=== PATIENT | female | born 1975 ===

== ENCOUNTER 2020-08-19 10:44 | Outpatient (REF) | payer OTHER, SELFPAY ==
--- NOTE | 2020-08-19 10:51 | XR_ITS ---
EXAMINATION: XR CHEST CLINICAL INFORMATION: Cough. COMPARISON: None TECHNIQUE: 2 views of the chest were obtained. FINDINGS: No significant abnormality is noted involving the heart, lungs, mediastinum, bony thorax or soft tissues. XR/XR chest 2V IMPRESSION: Unremarkable chest examination.
== END 2020-08-19 10:45 | disposition home or self-care (01) ==
LOC: HO.LAB 10:44
PROVIDERS: Visit Provider Nurse Practitioner Family
DX: R05 Cough (principal)
CPT/HCPCS: 0241U; 71046

== ENCOUNTER 2020-08-19 10:45 | Outpatient (REF) | payer OTHER, SELFPAY ==
[2020-08-19 15:16] LABS: Influenza A PCR NEGATIVE (Negative); Influenza B PCR NEGATIVE (Negative); Resp Syncy Virus RNA Qual PCR NEGATIVE (Negative); SARS COV2 PCR INHOUSE NEGATIVE (Negative)
== END 2020-08-19 10:46 | disposition home or self-care (01) ==
LOC: HO.HMGCX 10:45
PROVIDERS: PCP Internal Medicine; Visit Provider Nurse Practitioner Family
DX: Z20.828 Contact with and (suspected) exposure to other viral communicable diseases (principal)
CPT/HCPCS: 0241U

== ENCOUNTER 2022-05-11 15:26 | Outpatient (REF) | payer OTHER, SELFPAY ==
--- NOTE | ~2022-05-11 | XR_ITS ---
EXAMINATION: XR HAND, RIGHT CLINICAL INFORMATION: Joint pain COMPARISON: None TECHNIQUE: PA, lateral, and oblique views of the right hand. FINDINGS: No fracture or dislocation. Normal osseous mineralization. Joint spaces throughout the hand and wrist are maintained. No chondrocalcinosis or erosions. Minimal marginal osteophyte formation at the thumb IP joint. XR/XR hand RT min 3V IMPRESSION: 1. No acute osseous injury or radiographic evidence of erosive arthropathy. 2. Minimal thumb IP joint osteoarthritis.
== END 2022-05-11 15:27 | disposition home or self-care (01) ==
LOC: HO.HMGCX 15:26
PROVIDERS: PCP Internal Medicine; Visit Provider Internal Medicine
DX: M25.541 Pain in joints of right hand (principal)
CPT/HCPCS: 73130

== ENCOUNTER 2023-04-18 08:49 | Outpatient (AMB) | payer OTHER, SELFPAY ==
--- NOTE | 2023-04-18 08:53 | MHC.OFFWIV ---
Intake Vital Signs 04/18/23 08:57 BP 110/70 Blood Pressure Location Lt brachial Position Sitting Pulse 74 Pulse Source Pulse Oximeter Temp 98.2 F Temp Source Temporal Artery Scan Pulse Oximetry (%) 98 Oxygen Delivery Method Room Air Intake Visit Reasons: Ep, Left ear pain Intake Note: Patient here because she has been experiencing an itch in her left ear and has been scratching it and rcently she has discharge leaking out and now is having a hard time hearing out of the left ear. Patient Tobacco Use Status: Never used Tobacco Allergies acetaminophen [From PERCOCET] Allergy (Unknown, Unverified 04/18/23 08:56) ITCHING ibuprofen [IBUPROFEN] Allergy (Unknown, Unverified 04/18/23 08:56) HAS ONLY 1 KIDNEY oxycodone [From PERCOCET] Allergy (Unknown, Unverified 04/18/23 08:56) ITCHING Do you need a note to return to daycare/school/sports/work: Yes HPI Ep, Left ear pain HPI Details Patient reports a several week history of a left itchy year. Recently, she noticed some clear discharge from her ear, with ear pain. Denies any other upper respiratory symptoms. Denies any fever or chills. Denies any recent swimming. PFSH Family History Other Mental health disorder Social History Housing: House Patient Tobacco Use Status: Never used Tobacco Current occupational status: employed Cognitive needs: No Hearing needs: No Vision needs: Yes Review of Systems Const All systems reviewed & are unremarkable except as noted in HPI and below Physical Exam Vital Signs: Last Vital Signs Temp 98.2 F 04/18/23 08:57 Pulse 74 04/18/23 08:57 BP 110/70 04/18/23 08:57 Pulse Ox 98 04/18/23 08:57 Oxygen Delivery Method Room Air 04/18/23 08:57 Const General: cooperative, healthy appearing and no acute distress HEENT Head: Yes normal to inspection Ears: external ears normal, TM normal on the right and TM abnormal (Right TM ) wth effusion purulent on the left and erythematous on the left Neck Neck: Yes no lymphadenopathy Resp Effort & Inspection: normal respiratory effort and able to speak in complete sentences Auscultation: clear to auscultation bilaterally Cardio Jugular venous distension: no JVD Palpation: normal PMI Rate: regular rate Rhythm: regular rhythm Skin General skin exam: no rashes or lesions noted Extrem General: Yes capillary refill normal and Yes no clubbing, cyanosis or edema Psych Appearance: grossly normal Mental Status: mental status grossly normal Speech and movement: Normal speech and movement present Assessment & Plan Assessment & Plan (1) Left otitis media with effusion: Code(s): H65.92 - Unspecified nonsuppurative otitis media, left ear Plan: Augmentin for left OM with effusion. Reviewed indications, use, possible s/e of medication. She can use Tylenol/Motrin for any discomfort. Advised to return to the clinic if she does not improve with treatment, or if symptoms worsen or new symptoms develop. Patient agrees to plan. Medications: New amoxicillin-pot clavulanate 875-125 mg 1 tab PO BID 10 days 20 tabs 0RF H65.92 - Unspecified nonsuppurative otitis media, left ear Coding Level of Care Code Est Pt Level 3 (66336) Diagnoses Left otitis media with effusion H65.92
[2023-04-18 08:57] VITALS: BP 110/70; PULSE 74; TEMP 36.8; O2SAT 98
== END 2023-04-18 09:28 | disposition home or self-care (01) ==
PROVIDERS: PCP Internal Medicine; Visit Provider Nurse Practitioner Family
DX: H65.92 Unspecified nonsuppurative otitis media, left ear (principal)
CPT/HCPCS: 99213

== ENCOUNTER 2023-04-21 13:17 | Outpatient (AMB) | payer OTHER, SELFPAY ==
--- NOTE | 2023-04-21 13:20 | AM.OFFWIN_ITS ---
Intake Vital Signs 04/21/23 13:24 BP 120/74 Blood Pressure Location Rt brachial Position Sitting Pulse 94 Pulse Source Pulse Oximeter Temp 99.3 F Temp Source Temporal Artery Scan Pulse Oximetry (%) 97 Oxygen Delivery Method Room Air Intake Visit Reasons: EST/ear infection/swelling left side face Intake Note: Patient here for possible ear infection, she was here on tuesday with complaints of swelling on left side of face/neck and some discharge coming from left ear and was put on antibiotics. she is now here with the same issues but with increased swelling in face and jaw, unable to turn neck because it feels stiff, she has discharge coming from ear and has had low grade fevers. Patient Tobacco Use Status: Never used Tobacco Allergies acetaminophen [From PERCOCET] Allergy (Unknown, Unverified 04/18/23 08:56) ITCHING ibuprofen [IBUPROFEN] Allergy (Unknown, Unverified 04/18/23 08:56) HAS ONLY 1 KIDNEY oxycodone [From PERCOCET] Allergy (Unknown, Unverified 04/18/23 08:56) ITCHING HPI HPI Comments History of Present Illness Details 47-year-old female that presents for left ear pain. Patient states that she was running here over the weekend developed new pain she came seen Tuesday and told she has otitis externa. She is placed on Augmentin by previous provider. She presents today with worsening pain swelling of the left side of her face in ear tenderness behind the ear in new fever as well as nausea. [facility] Family History Other Mental health disorder Social History Housing: House Patient Tobacco Use Status: Never used Tobacco Current occupational status: employed Cognitive needs: No Hearing needs: No Vision needs: Yes Review of Systems Const All systems reviewed & are unremarkable except as noted in HPI and below Denies fever(s), Denies headache(s) and Denies weakness Eyes Reports no additional complaints ENT Details: Swelling of the ear, jaw pain Reports ear discharge, Reports otalgia and Denies headache(s) Card Reports no additional complaints, Denies chest pain, Denies leg edema and Denies dyspnea Resp Denies cough and Denies dyspnea GI Denies abdominal pain, Denies nausea and Denies vomiting Denies urinary frequency and Denies dysuria Musc Reports no additional complaints Neuro Denies headache(s) and Denies weakness Psych Reports no additional complaints Endo Reports no additional complaints Physical Exam Vital Signs: Last Vital Signs Temp 99.3 F 04/21/23 13:24 Pulse 94 04/21/23 13:24 BP 120/74 04/21/23 13:24 Pulse Ox 97 04/21/23 13:24 Oxygen Delivery Method Room Air 04/21/23 13:24 Const General: cooperative, no acute distress and alert Orientation/consciousness: patient oriented x3 Limitations: no limitations HEENT Other: Displaced auricle on the left side. Redness and swelling over the mastoid process tenderness to palpation along the mastoid process and down the neck. Purulent drainage in the ear canal was extensive swelling. Head: Yes normal to inspection General nose exam: Normal external nose present Eyes General: appearance normal, both eyes and all related structures Neck Neck: Yes normal visual inspection Chest Chest palpation & inspection: normal inspection of the chest Resp Effort & Inspection: normal respiratory effort, able to speak in complete sentences and no audible wheezes Auscultation: clear to auscultation bilaterally Cardio Rate: regular rate Rhythm: regular rhythm GI Inspection: Yes normal to inspection Palpation (GI): Soft to palpation and nontender Skin General skin exam: no rashes or lesions noted Neuro General: patient oriented x3 Psych Appearance: grossly normal Mental Status: mental status grossly normal Speech and movement: Normal speech and movement present Affect: normal affect Attitude: cooperative Thought process: Normal thought process present Thought content: Normal thought content present Assessment & Plan Assessment & Plan (1) Mastoiditis: Code(s): H70.90 - Unspecified mastoiditis, unspecified ear Plan 47-year-old female that presents for left ear pain. Vital signs stable on exam patient presents alert and oriented in [id number] discomfort. Exam was notable for displaced ear on the left side with swelling and erythema over the mastoid process tenderness to palpation over the mastoid process and down the neck. Purulent drainage in the ear canal with swelling. Unable to assess TM. Given patient presentation as well as systemic signs such as fever despite antibiotic therapy of concern is mastoiditis versus a malignant otitis externa. Discussed this with the patient and need for patient to be evaluated at the emergency department with ENT coverage. [facility] does not have ENT coverage after speaking with the triage provider. Called [facility] in they will expect the patient. Patient will go POV Discharge instructions, follow up and treatment are discussed with patient in my usual fashion. Alternatives in treatment are also discussed. The patient will return for worsening symptoms or as needed. Advised that any labs/imaging ordered will be followed up on and contact made if further treatment needed. Counseled that patient's condition may require further evaluation and/or treatment. Symptoms of concern for worsening disorder discussed in detail in my customary manner. Patient does verbalize understanding of the plan, there are no apparent barriers to communication. The patient is given the opportunity to ask questions and have them answered to his/her satisfaction Patient Instructions: You were seen and evaluated in the walk-in clinic today as we discussed there is concern that uric ear infection has spread to the bone behind her ear. To rule this out you need to go to the emergency room for further evaluation [facility] has been notified of your arrival. I Coding Level of Care Code Est Pt Level 4 (23741) Diagnoses Mastoiditis H70.90
[2023-04-21 13:24] VITALS: BP 120/74; PULSE 94; TEMP 37.4; O2SAT 97
== END 2023-04-21 14:00 | disposition home or self-care (01) ==
PROVIDERS: PCP Internal Medicine; Visit Provider Physician Assistant
DX: H70.90 Unspecified mastoiditis, unspecified ear (principal)
CPT/HCPCS: 99214

== ENCOUNTER 2023-04-27 08:44 | Outpatient (AMB) | payer OTHER, SELFPAY ==
--- NOTE | 2023-04-27 08:55 | MHC.OFFWIV ---
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 Patient was hospitalized 04/21-04/23/2023 at [facility] for complicated ear infection requiring IV antibiotics, they gave her a note stating she could return to work tomorrow however she states she is feeling much better and would like to return today. Denies fevers, chills, headache, vision changes, dizziness and weakness. Physical exam with slight purulence to left ear, no discomfort with external manipulation of bilateral ears, tympanic membrane erythematous on the left, normal on the right. No mastoid tenderness. Patient nontoxic appearing Likely improving left-sided otitis media no signs of necrotizing infection. No signs of mastoiditis. Patient well-appearing Patient can return to work afebrile here in the office. Educated patient on diagnosis and treatment plan, answered all question, patient verbalizes understanding. At this time patient will be discharged home, advised to return with new or worsening symptoms. Educated on worrisome signs and symptoms and when to return. At this time I feel comfortable discharge home. PFSH Family History Other Mental health disorder Social History Housing: House Patient Tobacco Use Status: Never used Tobacco Patient : No Current occupational status: employed Cognitive needs: No Hearing needs: No Vision needs: Yes Review of Systems Const Details: Constitutional : No Weight loss, No Fever, No Chills, No Fatigue, No Malaise ENT/Mouth : No sore throat, No Rhinorrhea, + ear discomfort Eyes: No Eye Pain, No Swelling, No Redness Cardiovascular : No Chest Pain, No SOB, No Dyspnea on Exertion, No Orthopnea, No Edema, No Palpitations Respiratory : No Cough, No Sputum, No Wheezing Gastrointestinal : No Nausea, No Vomiting, No Diarrhea, No Constipation, No abdominal Pain, No Hematochezia, No Melena Genitourinary : No Dysuria, No Urinary Frequency, No Hematuria, Musculoskeletal : No joint pain, No Myalgias, No Joint Swelling Skin : No Skin Lesions, No rash Neuro : No Weakness, No Numbness, No Dizziness, No Headache Psych : No Anxiety/Panic, No Depression All other systems reviewed and are negative All systems reviewed & are unremarkable except as noted in HPI and below Physical Exam Vital Signs: Last Vital Signs Temp 98.6 F 04/27/23 08:56 Pulse 100 04/27/23 08:56 Resp 20 04/27/23 08:56 BP 108/70 04/27/23 08:56 Pulse Ox 98 04/27/23 08:56 Oxygen Delivery Method Room Air 04/27/23 08:56 vss Appearance: Alert.? Oriented X3.? No acute distress.? Head: Normocephalic, atraumatic, no step-offs or deformities Eyes: Pupils equal, round and reactive to light.? ENT: Pharynx normal.? slight purulence to left ear, no discomfort with external manipulation of bilateral ears, tympanic membrane erythematous on the left, normal on the right. Neck: Normal inspection.? Neck supple.? CVS: Normal heart rate and rhythm.? Pulses normal.? Respiratory: No respiratory distress.? Breath sounds normal.? Abdomen: Soft and nontender.? Skin: Skin warm and dry.? Normal skin color.? Normal skin turgor.? Extremities: No lower extremity edema.? No calf ttp. 5/5 strength to bilateral upper and lower extremities Back: No midline tenderness, no C-spine tenderness, full range of motion, no CVA tenderness bilaterally Neuro: Oriented X 3.? No motor deficit.? No sensory deficit. CN 2-12 intact Assessment & Plan Assessment & Plan (1) Otitis media: Code(s): H66.90 - Otitis media, unspecified, unspecified ear Plan Take your medications as prescribed. If you were prescribed antibiotics today, it is important that you take your medication to their entirety, do not skip any doses, do not finish them early. Follow-up with your primary care provider this week. Return to the emergency department with new or worsening symptoms. Such as fevers, chills, chest pain, shortness of breath, nausea, vomiting, dizziness, headache, vision changes, lethargy In case of emergency call 911 Coding Level of Care Code Est Pt Level 3 (49301) Diagnoses Otitis media H66.90
[2023-04-27 08:56] VITALS: BP 108/70; PULSE 100; RESP 20; TEMP 37; O2SAT 98
== END 2023-04-27 09:22 | disposition home or self-care (01) ==
PROVIDERS: PCP Internal Medicine; Visit Provider Physician Assistant
DX: H66.90 Otitis media, unspecified, unspecified ear (principal)
CPT/HCPCS: 99213

== ENCOUNTER 2023-07-15 08:14 | Outpatient (AMB) | payer OTHER, SELFPAY ==
--- NOTE | 2023-07-15 08:41 | MHC.OFFWIV ---
Intake Vital Signs 07/15/23 08:42 Height 5 ft 7 in Weight 160 lb BMI 25.1 BP 112/72 Blood Pressure Location Rt brachial Position Sitting Pulse 94 Pulse Source Pulse Oximeter Pulse Oximetry (%) 98 Oxygen Delivery Method Room Air Intake Visit Reasons: EP Pain LT side rib Patient Tobacco Use Status: Never used Tobacco Allergies ibuprofen [IBUPROFEN] Allergy (Unknown, Verified 07/15/23 08:43) HAS ONLY 1 KIDNEY Medication List - Last Reconciled 07/15/23 by Mary Flores MD fluoxetine 60 mg PO DAILY lisdexamfetamine (Vyvanse) 60 mg PO DAILY trazodone 200 - 300 mg PO BEDTIME Do you need a note to return to daycare/school/sports/work: Yes HPI EP Pain LT side rib HPI Details Patient is a 47-year-old female came in today to be evaluated for left-sided lower chest pain Patient says that it started 2 or 3 weeks ago gradually and get got worse. Now it hurts to take a deep breath She is also complaining of epigastric discomfort and feeling of acid reflux. She is taking Tylenol which is not helping with the pain In between she is also taking NSAIDs. I am ordering left-sided rib x-ray, she is tender over 6, 7th rib with deep pressure Also having discomfort with epigastric palpation I have sent tramadol for the pain management Omeprazole to be taken daily. Further management after x-ray report [facility] Family History Other Mental health disorder Social History Housing: House Patient Tobacco Use Status: Never used Tobacco Current occupational status: employed Cognitive needs: No Hearing needs: No Vision needs: Yes Review of Systems Const Denies chills and Denies fever(s) ENT Denies epistaxis and Denies nasal discharge Resp Denies chest congestion, Denies cough and Denies hemoptysis GI Denies diarrhea and Denies nausea Skin/Breast Denies rash Neuro Reports no additional complaints Psych Reports no additional complaints Endo Reports no additional complaints Physical Exam Vital Signs: Last Vital Signs Pulse 94 07/15/23 08:42 BP 112/72 07/15/23 08:42 Pulse Ox 98 07/15/23 08:42 Oxygen Delivery Method Room Air 07/15/23 08:42 BMI result Body Mass Index 25.1 Const General: cooperative, comfortable and no acute distress Orientation/consciousness: patient oriented x3 HEENT Head: Yes normocephalic Eyes General: appearance normal, both eyes and all related structures Neck Other: Supple Neck: Yes supple Chest Chest/axillae images: 1. Tender to deep pressure over the rib Resp Effort & Inspection: normal respiratory effort, no cough and no stridor Cardio Rhythm: regular rhythm Heart sounds: S1 normal heart sound present and S2 normal heart sound present GI Other: Mild epigastric discomfort with pressure, bowel sound positive no guarding or rebound Skin General skin exam: turgor normal Neuro Other: Motor sensory intact General: patient oriented x3, tone normal and moves all extremities Extrem Other: No lower extremity swelling. Right lower extremity: no edema Left lower extremity: no edema Psych Other: Normal effect, speech clear Assessment & Plan Assessment & Plan (1) Non-cardiac chest pain: Code(s): R07.89 - Other chest pain (2) Epigastric discomfort: Code(s): R10.13 - Epigastric pain (3) Dyspepsia: Code(s): R10.13 - Epigastric pain Plan Patient is a 47-year-old female came in today to be evaluated for left-sided lower chest pain Patient says that it started 2 or 3 weeks ago gradually and get got worse. Now it hurts to take a deep breath She is also complaining of epigastric discomfort and feeling of acid reflux. She is taking Tylenol which is not helping with the pain In between she is also taking NSAIDs. I am ordering left-sided rib x-ray, she is tender over 6, 7th rib with deep pressure Also having discomfort with epigastric palpation I have sent tramadol for the pain management Omeprazole to be taken daily. Further management after x-ray report Medications: New tramadol 50 mg PO Q8H PRN 30 tabs 0RF pain 10 days omeprazole 20 mg PO DAILY 90 caps 0RF Coding Level of Care Code Est Pt Level 4 (59267) Diagnoses Non-cardiac chest pain R07.89 Epigastric discomfort R10.13 Dyspepsia R10.13
[2023-07-15 08:42] VITALS: BP 112/72; PULSE 94; O2SAT 98; BMI 25.1
== END 2023-07-15 09:05 | disposition home or self-care (01) ==
PROVIDERS: PCP Internal Medicine; Visit Provider Internal Medicine
DX: R07.89 Other chest pain (principal); R10.13 Epigastric pain
CPT/HCPCS: 99214

== ENCOUNTER 2023-07-15 08:54 | Outpatient (REF) | payer OTHER, SELFPAY ==
--- NOTE | ~2023-07-15 | XR_ITS ---
EXAMINATION: CHEST, XR RIBS, LEFT CLINICAL INFORMATION: Chest pain COMPARISON: None available. TECHNIQUE: PA chest. 3 views of the left ribs. FINDINGS: Lungs are clear. No consolidation, pneumothorax, or pleural effusion. The cardiomediastinal silhouette and pulmonary vasculature are normal. Osseous structures are unremarkable. Ribs are intact. No fractures are identified. XR/XR ribs LT min 3V w CXR1V IMPRESSION: Unremarkable examination.
== END 2023-07-15 08:55 | disposition home or self-care (01) ==
LOC: HO.HMGCX 08:54
PROVIDERS: PCP Internal Medicine; Visit Provider Internal Medicine
DX: R07.89 Other chest pain (principal)
CPT/HCPCS: 71101

== ENCOUNTER 2023-08-26 08:31 | Outpatient (AMB) | payer OTHER, SELFPAY ==
--- NOTE | 2023-08-26 08:35 | MHC.PC.OV ---
Vital Signs 08/26/23 08:37 Height 5 ft 7 in Weight 159 lb BMI 24.9 BP 110/70 Blood Pressure Location Lt brachial Position Sitting Pulse 69 Pulse Source Pulse Oximeter Pulse Oximetry (%) 98 Oxygen Delivery Method Room Air Intake Visit Reasons: Annual Exam Allergies ibuprofen [IBUPROFEN] Allergy (Unknown, Verified 08/26/23 08:35) HAS ONLY 1 KIDNEY Medication List - Last Reconciled 08/26/23 by Mary Flores MD fluoxetine 60 mg PO DAILY lisdexamfetamine (Vyvanse) 60 mg PO DAILY omeprazole 20 mg PO DAILY trazodone 200 - 300 mg PO BEDTIME Tobacco use date assessed: 08/26/23 Dental Screening Dental Screen Date: 08/26/23 Did you have a dental visit in the last 12 months?: No Was dental information given to patient?: Patient has dentist HPI Annual Exam HPI Details Patient came in today for physical examination She has [facility] Mammogram Pap smear through [facility] Patient is seeing psych med prescriber GERD: Patient is taking omeprazole but not regularly She is complaining of feeling chest pains which comes in randomly for few seconds and then resolve EKG done today shows normal sinus rhythm no acute findings I would recommend that she start taking omeprazole regularly it could be reflux related symptoms. Follow-up 1 year physical exam Labs to be done today PFSH Family History Other Mental health disorder Social History Housing: House Patient Tobacco Use Status: Never used Tobacco e-Cigarette/Vaping Use: Never Used Current occupational status: employed Cognitive needs: No Hearing needs: No Vision needs: Yes Questionnaire PHQ-9 Over the last 2 weeks, how often have you been bothered by any of the following problems? 1. Little interest or pleasure in doing things: not at all 2. Feeling down, depressed, or hopeless: not at all 3. Trouble falling or staying asleep, or sleeping too much: not at all 4. Feeling tired or having little energy: not at all 5. Poor appetite or overeating: not at all 6. Feeling bad about yourself - or that you are a failure or have let yourself or your family down: not at all 7. Trouble concentrating on things, such as reading the newspaper or watching television: not at all 8. Moving or speaking so slowly that other people could have noticed. Or the opposite - being so fidgety or restless that you have been moving around a lot more than usual: not at all 9. Thoughts that you would be better off or of hurting yourself in some way: not at all Total score: 0 Depression Screening Interpretation: Negative Depression Screening Done: Yes 02550 - PHQ-9 Billing: Yes Source: Developed by Drs. Nj Hazel, Yari Patel, Tomasz Lozano and colleagues, with an educational renetta from [employer]. Thrive Questionnaire Date Thrive assessed: 08/26/23 I am a: Patient What is your living situation today?: I have a steady place to live Within the past 12 months, did the food you bought not last and you didn't have the money to get more?: Never true Within the past 12 months, did you worry whether your food would run out before you got money to buy more?: Never true Do you have trouble paying for medicines?: No Do you have trouble getting transportation to medical appointments?: No Do you have trouble paying your heating and electricity bill?: No Do you have trouble taking care of your child, family member or friend?: No Do you have trouble with day-to-day activities such as bathing, preparing meals, shopping, managing finances, etc.?: No Are you currently unemployed and looking for a job?: No Are you interested in more education?: No Please select the resources that you would like help with: None Currently or been in a relationship where the following occur: no concerns reported AUDIT C Alcohol Use Questionnaire (AUDIT-C) 1. How often do you have a drink containing alcohol?: Monthly or less 2. How many drinks containing alcohol do you have on a typical day when you are drinking?: 1 or 2 3. How often do you have six or more drinks on one occasion?: Never Total Score: 1 LISET-7 AMB Questionnaire LISET-7 Date LISET - 7 assessed: 08/26/23 Feeling nervous, anxious, or on edge: 0 = Not at all Not being able to stop or control worryin = Not at all Worrying too much about different things: 0 = Not at all Trouble relaxin = Not at all Being so restless that it is hard to sit still: 0 = Not at all Becoming easily annoyed or irritable: 0 = Not at all Feeling afraid as if something awful might happen: 0 = Not at all Total LISET-7 score (0-4 normal; 5-9 mild; 10-14 moderate; 15-21 severe): 0 Source: Developed by Drs. Nj Hazel, Yari Patel, Tomasz Lozano and colleagues, with an educational renetta from [employer]. LISET-7 Assessment Billing LISET-7 Assessment Tool: LISET-7 Assessment 99004 Review of Systems Const Denies chills, Denies fever(s) and Denies headache(s) Eyes Denies blurry vision ENT Denies headache(s), Denies nasal discharge, Denies nasal obstruction, Denies odynophagia and Denies sinus pain Resp Denies cough and Denies hemoptysis GI Denies diarrhea, Denies odynophagia, Denies vomiting and Denies hematemesis Reports as per HPI Musc Denies abnormal gait Skin/Breast Reports as per HPI Neuro Denies Neuro-related abnormal movements, Denies Abnormal speech present, Denies abnormal gait, Denies headache(s) and Denies Sensory deficit (Neuro) Psych Denies mood swings and Denies paranoia Endo Reports as per HPI Nirmal/Lymph Reports as per HPI Aller/Immun Reports as per HPI Physical exam (Primary Care) Vital Signs: Last Vital Signs Pulse 69 08/26/23 08:37 BP 110/70 08/26/23 08:37 Pulse Ox 98 08/26/23 08:37 Oxygen Delivery Method Room Air 08/26/23 08:37 BMI result Body Mass Index 24.9 Tobacco/Smoking Status: Tobacco use Status Tobacco use date assessed 08/26/23 08/26/23 08:42 Patient Tobacco Use Status Never used Tobacco 08/26/23 08:42 e-Cigarette/Vaping Use Never Used 08/26/23 08:42 PHQ-9: PHQ-9 Score PHQ-9: Total score 0 08/26/23 09:09 Depression Screening Interpretation: Negative Thrive Assessment: Date of Thrive Assessment Date Thrive assessed 08/26/23 08/26/23 08:42 Currently or been in a relationship where the following occur: no concerns reported Const General: cooperative, comfortable and no acute distress Orientation/consciousness: patient oriented x3 HENMT Head: Yes normocephalic and Yes atraumatic Eyes General: appearance normal, both eyes and all related structures Pupils: Equal, round and reactive pupils present EOM: EOMs intact bilaterally Neck Neck: Yes supple and No lymphadenopathy Thyroid: Thyroid normal Lymphatic: no lymphadenopathy noted Resp Effort & Inspection: normal respiratory effort and able to speak in complete sentences Auscultation: clear to auscultation bilaterally Cardio Heart sounds: S1 normal heart sound present and S2 normal heart sound present GI Palpation (GI): Soft to palpation and nontender Auscultation: normal bowel sounds General: Yes no CVA tenderness Back/Spine/Pelvis Back: no CVA tenderness Skin General skin exam: elasticity normal and turgor normal Neuro General: patient oriented x3 and gait normal Cranial nerves: Yes Equal, round and reactive pupils present Speech: No Abnormal speech present Sensory Exam: No Sensory deficit (Neuro) Coordination: tandem gait normal and Romberg test negative Extrem General: Yes normal exam except as noted and No edema Office Procedures EKG [id number], Complete Assessment and Plan Assessment & Plan (1) Encounter for general adult medical examination with abnormal findings: Code(s): Z00.01 - Encounter for general adult medical examination with abnormal findings (2) Chest pain: Code(s): R07.9 - Chest pain, unspecified Qualifiers: Chest pain type: precordial pain Qualified Code(s): R07.2 - Precordial pain (3) Dyspepsia: Code(s): R10.13 - Epigastric pain Plan Patient came in today for physical examination She has OBGYN Mammogram Pap smear through [facility] Patient is seeing psych med prescriber GERD: Patient is taking omeprazole but not regularly She is complaining of feeling chest pains which comes in randomly for few seconds and then resolve EKG done today shows normal sinus rhythm no acute findings I would recommend that she start taking omeprazole regularly it could be reflux related symptoms. Follow-up 1 year physical exam Labs to be done today Orders: Orders Complete Blood Count Auto Diff Today R07.9 - Chest pain, unspecified, R10.13 - Epigastric pain, Z00.01 - Encounter for general adult medical examination with abnormal findings Comprehensive [place]. Panel Fast Today R07.9 - Chest pain, unspecified, R10.13 - Epigastric pain, Z00.01 - Encounter for general adult medical examination with abnormal findings Lipid Panel Today R07.9 - Chest pain, unspecified, R10.13 - Epigastric pain, Z00.01 - Encounter for general adult medical examination with abnormal findings AMB EKG-In Office Today R07.9 - Chest pain, unspecified TSH reflex Free T4 Today R07.9 - Chest pain, unspecified, R10.13 - Epigastric pain, Z00.01 - Encounter for general adult medical examination with abnormal findings Coding Level of Care Code Est Pt Prev Care 40-64y(30858) Diagnoses Encounter for general adult medical examination with abnormal findings Z00.01 Precordial pain R07.2 Chest pain type: precordial pain Dyspepsia R10.13 CPT Codes EKG - CPT: 12002-[id number], Complete ([id number]) Additional Codes LISET-7 Assessment Billing - LISET-7 Assessment Tool: LISET-7 Assessment 04717 ([id number])
[2023-08-26 08:37] VITALS: BP 110/70; PULSE 69; O2SAT 98; BMI 24.9
== END 2023-08-26 11:21 | disposition home or self-care (01) ==
PROVIDERS: PCP Internal Medicine; Visit Provider Internal Medicine
DX: Z00.00 Encounter for general adult medical examination without abnormal findings (principal); R07.2 Precordial pain; R10.13 Epigastric pain
CPT/HCPCS: 93000; 99396

== ENCOUNTER 2023-08-26 09:09 | Outpatient (REF) | payer OTHER, SELFPAY ==
[2023-08-26 12:18] LABS: MANUAL DIFF FLAG NO
[2023-08-26 12:28] LABS: Basophils Absolute Auto 0.1 X10*3/uL (0.0-0.2); Basophils Percent Auto 0.7 % (0-2); Eosinophils Absolute Auto 0.2 X10*3/uL (0.0-0.4); Eosinophils Percent Auto 1.6 % (0-4); Hematocrit 38.9 % (37.0-47.0); Hemoglobin 12.9 g/dl (12.0-16.0); Imm Gran Abs Auto 0.05 X10*3/uL (0.00-0.03); Imm Gran Pct Auto 0.5 % (0.0-0.4); Lymphocytes Absolute Auto 2.7 X10*3/uL (1.2-4.9); Lymphocytes Percent Auto 26.1 % (20-40); Mean Corpuscular HGB Conc 33.2 g/dl (31.0-35.0); Mean Corpuscular Hemoglobin 28.7 pg (27.0-33.0); Mean Corpuscular Volume 86.4 fL (80.0-98.0); Mean Platelet Volume 9.7 fL (9.4-12.3); Monocytes Absolute Auto 0.7 X10*3/uL (0.1-1.2); Neutrophils Absolute Auto 6.7 x10*3/uL (2.0-8.3); Neutrophils Percent Auto 64.1 % (45-73); Platelet Count 338 X10*3/uL (160-400); Red Cell Distribution Width 13.1 % (11.0-16.0); White Blood Count 10.5 X10*3/uL (4.8-10.8)
[2023-08-26 13:16] LABS: Alanine Aminotransferase 11 U/L (0-31); Albumin Level 4.3 g/dL (3.5-5.0); Alkaline Phosphatase 52 U/L (39-117); Anion Gap 11 (12-20); Aspartate Amino Transferase 14 U/L (5-31); Bilirubin Total 0.6 mg/dL (0.0-1.0); Blood Urea Nitrogen 16 mg/dL (9-16); Calcium 8.9 mg/dL (8.4-10.2); Carbon Dioxide 24 mmol/L (22-29); Chloride 107 mmol/L (96-108); Cholesterol 179 mg/dL (<200); Estimated Glomerular Filt Rate > 60; Glucose Fasting 86 mg/dL (60-99); HDL Cholesterol 48 mg/dL (>40); LDL Cholesterol Calculated 118 mg/dL (<100); Sodium 138 mmol/L (135-145); Total Protein 7.7 g/dL (6.5-8.0); Triglycerides 66 mg/dL (<150)
[2023-08-26 13:49] LABS: TSH reflex Free T4 0.59 uIU/mL (0.32-4.0)
== END 2023-08-26 09:10 | disposition home or self-care (01) ==
LOC: HO.HMGCLDS 09:09
PROVIDERS: PCP Internal Medicine; Visit Provider Internal Medicine
DX: Z00.01 Encounter for general adult medical examination with abnormal findings (principal); R10.13 Epigastric pain; R07.9 Chest pain, unspecified
CPT/HCPCS: 36415; 80053; 80061; 84443; 85025

== ENCOUNTER 2024-01-04 13:02 | Outpatient (AMB) | payer OTHER, SELFPAY ==
--- NOTE | 2024-01-04 13:04 | A.OFFPC_ITS ---
Vital Signs 01/04/24 13:05 Height 5 ft 7 in Weight 167 lb BMI 26.2 BP 132/80 Blood Pressure Location Lt brachial Position Sitting Pulse 79 Pulse Source Pulse Oximeter Pulse Oximetry (%) 98 Oxygen Delivery Method Room Air Intake Visit Reasons: Back Pain Allergies ibuprofen [IBUPROFEN] Allergy (Unknown, Verified 08/26/23 08:35) HAS ONLY 1 KIDNEY Medication List - Last Reconciled 01/04/24 by Mary Flores MD fluoxetine 60 mg PO DAILY lisdexamfetamine (Vyvanse) 60 mg PO DAILY trazodone 200 - 300 mg PO BEDTIME Tobacco use date assessed: 01/04/24 Dental Screening Dental Screen Date: 01/04/24 Did you have a dental visit in the last 12 months?: No Was dental information given to patient?: Patient has dentist HPI Back Pain HPI Details Patient is a 48-year-old female came in today to be evaluated for back pain Patient says that she has been having this pain for the past few days She was trying to lose weight walking before it started Pain is located lower back both sides and radiating to both her hips When she wakes up in the morning it is difficult to get out of bed because of the pain Patient have sciatica history but this pain is different she tells me Laying down makes pain better moving around makes it worse There is no bowel or bladder issues She is also feeling itchy in her left ear, on examination patient have impacted cerumen for that I have sent Debrox ear drops She is to use it 4 days before her follow-up in a week For her back pain I have ordered prednisone 20 mg once a day and baclofen 10 mg b.i.d. for 10 days. Patient have single kidney and can not take nonsteroidal anti-inflammatory medications She is taking Tylenol which does help a little Follow-up 7 days PFSH Family History Other Mental health disorder Social History Housing: House Patient Tobacco Use Status: Never used Tobacco e-Cigarette/Vaping Use: Never Used Current occupational status: employed Cognitive needs: No Hearing needs: No Vision needs: Yes Questionnaire PHQ-9 Over the last 2 weeks, how often have you been bothered by any of the following problems? 1. Little interest or pleasure in doing things: not at all 2. Feeling down, depressed, or hopeless: not at all 3. Trouble falling or staying asleep, or sleeping too much: not at all 4. Feeling tired or having little energy: not at all 5. Poor appetite or overeating: not at all 6. Feeling bad about yourself - or that you are a failure or have let yourself or your family down: not at all 7. Trouble concentrating on things, such as reading the newspaper or watching television: not at all 8. Moving or speaking so slowly that other people could have noticed. Or the opposite - being so fidgety or restless that you have been moving around a lot more than usual: not at all 9. Thoughts that you would be better off or of hurting yourself in some way: not at all Total score: 0 Depression Screening Interpretation: Negative Depression Screening Done: Yes 67404 - PHQ-9 Billing: Yes Source: Developed by Drs. Nj Hazel, Yari Patel, Tomasz Lozano and colleagues, with an educational renetta from [employer]. Thrive Questionnaire Date Thrive assessed: 01/04/24 I am a: Patient What is your living situation today?: I have a steady place to live Within the past 12 months, did the food you bought not last and you didn't have the money to get more?: Never true Within the past 12 months, did you worry whether your food would run out before you got money to buy more?: Never true Do you have trouble paying for medicines?: No Do you have trouble getting transportation to medical appointments?: No Do you have trouble paying your heating and electricity bill?: No Do you have trouble taking care of your child, family member or friend?: No Do you have trouble with day-to-day activities such as bathing, preparing meals, shopping, managing finances, etc.?: No Are you currently unemployed and looking for a job?: No Are you interested in more education?: No THRIVE Score: 0 AUDIT C Alcohol Use Questionnaire (AUDIT-C) 1. How often do you have a drink containing alcohol?: Monthly or less 2. How many drinks containing alcohol do you have on a typical day when you are drinking?: 1 or 2 3. How often do you have six or more drinks on one occasion?: Never Total Score: 1 LISET-7 AMB Questionnaire LISET-7 Date LISET - 7 assessed: 01/04/24 Feeling nervous, anxious, or on edge: 0 = Not at all Not being able to stop or control worryin = Not at all Worrying too much about different things: 0 = Not at all Trouble relaxin = Not at all Being so restless that it is hard to sit still: 0 = Not at all Becoming easily annoyed or irritable: 0 = Not at all Feeling afraid as if something awful might happen: 0 = Not at all Total LISET-7 score (0-4 normal; 5-9 mild; 10-14 moderate; 15-21 severe): 0 Source: Developed by Drs. Nj Hazel, Yari Patel, Tomasz Lozano and colleagues, with an educational renetta from [employer]. Review of Systems Const Denies chills and Denies fever(s) GI Denies fecal incontinence Musc Denies atrophy, Denies loss of height and Denies muscle weakness Neuro Denies Neuro-related abnormal movements, Denies lack of coordination, Denies focal weakness and Denies Sensory deficit (Neuro) Physical exam (Primary Care) Vital Signs: Last Vital Signs Pulse 79 01/04/24 13:05 BP 132/80 01/04/24 13:05 Pulse Ox 98 01/04/24 13:05 Oxygen Delivery Method Room Air 01/04/24 13:05 BMI result Body Mass Index 26.2 Tobacco/Smoking Status: Tobacco use Status Tobacco use date assessed 01/04/24 01/04/24 13:08 Patient Tobacco Use Status Never used Tobacco 01/04/24 13:08 e-Cigarette/Vaping Use Never Used 01/04/24 13:08 PHQ-9: PHQ-9 Score PHQ-9: Total score 0 01/04/24 13:11 Depression Screening Interpretation: Negative Thrive Assessment: Date of Thrive Assessment Date Thrive assessed 01/04/24 01/04/24 13:11 Const General: cooperative Nutritional Appearance: well nourished Orientation/consciousness: patient oriented x3 Neck Neck: Yes supple Resp Effort & Inspection: normal respiratory effort, no cough and no tracheal deviation Cardio Heart sounds: S1 normal heart sound present and S2 normal heart sound present General: Yes no CVA tenderness Back/Spine/Pelvis Back: no CVA tenderness Cervical Spine: cervical ROM normal Thoracic/Lumbar Spine: thoracic and lumbar spine normal to inspection, No kyphosis, No pain with thoraco-lumbar ROM, paraspinal muscle tenderness, No thoracic spinal tenderness and No lumbar spinal tenderness Neuro General: patient oriented x3 Cognition (Neuro): normal cognition Gait exam (Neuro): Normal gait present Motor exam (neuro): 5/5 motor strength present throughout Sensory Exam: No Sensory deficit (Neuro) Assessment and Plan Assessment & Plan (1) Strain of lumbar paraspinal muscle: Code(s): S39.012A - Strain of muscle, fascia and tendon of lower back, initial encounter Qualifiers: Encounter type: initial encounter Qualified Code(s): S39.012A - Strain of muscle, fascia and tendon of lower back, initial encounter (2) Impacted cerumen, left ear: Code(s): H61.22 - Impacted cerumen, left ear Plan Patient is a 48-year-old female came in today to be evaluated for back pain Patient says that she has been having this pain for the past few days She was trying to lose weight walking before it started Pain is located lower back both sides and radiating to both her hips When she wakes up in the morning it is difficult to get out of bed because of the pain Patient have sciatica history but this pain is different she tells me Laying down makes pain better moving around makes it worse There is no bowel or bladder issues She is also feeling itchy in her left ear, on examination patient have impacted cerumen for that I have sent Debrox ear drops She is to use it 4 days before her follow-up in a week For her back pain I have ordered prednisone 20 mg once a day and baclofen 10 mg b.i.d. for 10 days. Patient have single kidney and can not take nonsteroidal anti-inflammatory medications She is taking Tylenol which does help a little Follow-up 7 days Medications: New prednisone 20 mg PO DAILY 7 tabs 0RF 7 days carbamide peroxide 6.5% (Debrox) 5 drps otic (ear) left DAILY 15 mL 0RF 4 days baclofen 10 mg PO BID PRN 20 tabs 0RF muscle spasm 10 days Coding Level of Care Code Est Pt Level 3 (15012) Diagnoses Strain of lumbar paraspinous muscle, initial encounter S39.012A Encounter type: initial encounter Impacted cerumen, left ear H61.22
[2024-01-04 13:05] VITALS: BP 132/80; PULSE 79; O2SAT 98; BMI 26.2
== END 2024-01-04 13:35 | disposition home or self-care (01) ==
PROVIDERS: PCP Internal Medicine; Visit Provider Internal Medicine
DX: S39.012A Strain of muscle, fascia and tendon of lower back, initial encounter (principal); H61.22 Impacted cerumen, left ear
CPT/HCPCS: 99213

== ENCOUNTER 2024-01-13 14:21 | Outpatient (AMB) | payer OTHER, SELFPAY ==
[2024-01-13 14:26] VITALS: BP 118/82; PULSE 76; O2SAT 100; BMI 25.7
--- NOTE | 2024-01-13 14:26 | MHC.PC.OV ---
Vital Signs 01/13/24 14:26 Height 5 ft 7 in Weight 164 lb BMI 25.7 BP 118/82 Blood Pressure Location Rt brachial Position Sitting Pulse 76 Pulse Source Pulse Oximeter Pulse Oximetry (%) 100 Oxygen Delivery Method Room Air Intake Visit Reasons: F/U OK per [place] Allergies ibuprofen [IBUPROFEN] Allergy (Unknown, Verified 01/13/24 14:27) HAS ONLY 1 KIDNEY Medication List - Last Reconciled 01/13/24 by Mary Flores MD baclofen 10 mg PO Q8H PRN 15 days carbamide peroxide 6.5% (Debrox) 5 drps otic (ear) left DAILY 4 days fluoxetine 60 mg PO DAILY lisdexamfetamine (Vyvanse) 60 mg PO DAILY trazodone 200 - 300 mg PO BEDTIME Tobacco use date assessed: 01/13/24 Dental Screening Dental Screen Date: 01/13/24 Did you have a dental visit in the last 12 months?: Yes Did you have a dental problem in the last 6 months where you did not have access to dental care?: No Was dental information given to patient?: Patient has dentist HPI F/U OK per [place] HPI Details Patient is a 48-year-old female came in today for re-evaluation of back pain and also have cerumen irrigated from left ear Patient is feeling much better after finishing prednisone Baclofen did help her she is taking 2 times a day she is requesting if we can increase the dose to 3 times I have sent 30 more tablets she may take it 3 times a day for another couple of weeks Ear was irrigated with good result She is due for physical exam, we will book that in 3 or 4 months PFSH Family History Other Mental health disorder Social History Housing: House Patient Tobacco Use Status: Never used Tobacco e-Cigarette/Vaping Use: Never Used Current occupational status: employed Cognitive needs: No Hearing needs: No Vision needs: Yes Questionnaire Thrive Questionnaire Date Thrive assessed: 01/04/24 AUDIT C Alcohol Use Questionnaire (AUDIT-C) 1. How often do you have a drink containing alcohol?: Never 3. How often do you have six or more drinks on one occasion?: Never Total Score: 0 Score Reviewed/Action Taken: Yes LISET-7 AMB Questionnaire LISET-7 Date LISET - 7 assessed: 01/04/24 Source: Developed by Drs. Nj Hazel, Yari Patel, Tomasz Lozano and colleagues, with an educational renetta from [employer]. Review of Systems Const Denies chills and Denies fever(s) ENT Denies epistaxis and Denies nasal discharge Card Denies chest pain Resp Denies chest congestion, Denies cough and Denies hemoptysis GI Denies diarrhea and Denies nausea Skin/Breast Denies rash Neuro Reports no additional complaints Psych Reports no additional complaints Endo Reports no additional complaints Physical exam (Primary Care) Vital Signs: Last Vital Signs Pulse 76 01/13/24 14:26 BP 118/82 01/13/24 14: Pulse Ox 100 01/13/24 14:26 Oxygen Delivery Method Room Air 01/13/24 14:26 BMI result Body Mass Index 25.7 Tobacco/Smoking Status: Tobacco use Status Tobacco use date assessed 01/13/24 01/13/24 14:30 Patient Tobacco Use Status Never used Tobacco 01/13/24 14:30 e-Cigarette/Vaping Use Never Used 01/13/24 14:30 Thrive Assessment: Date of Thrive Assessment Date Thrive assessed 01/04/24 01/13/24 14:30 Const General: cooperative, comfortable and no acute distress Orientation/consciousness: patient oriented x3 HENMT Other: Both ears clean after irrigation of left ear Head: Yes normocephalic Eyes General: appearance normal, both eyes and all related structures Neck Neck: Yes supple Resp Effort & Inspection: normal respiratory effort, no cough and no stridor Cardio Rhythm: regular rhythm Heart sounds: S1 normal heart sound present and S2 normal heart sound present Skin General skin exam: turgor normal Neuro General: patient oriented x3, tone normal and moves all extremities Extrem Right lower extremity: no edema Left lower extremity: no edema Office Procedures Cerumen Removal From which ear canal was the cerumen removed: left Removal: irrigation Notes: patient tolerated procedure well, no complications and ear canal clear [id number] Irrigation/Lavage Assessment and Plan Assessment & Plan (1) Strain of lumbar paraspinal muscle: Code(s): S39.012A - Strain of muscle, fascia and tendon of lower back, initial encounter Qualifiers: Encounter type: initial encounter Qualified Code(s): S39.012A - Strain of muscle, fascia and tendon of lower back, initial encounter (2) Impacted cerumen, left ear: Code(s): H61.22 - Impacted cerumen, left ear Plan Patient is a 48-year-old female came in today for re-evaluation of back pain and also have cerumen irrigated from left ear Patient is feeling much better after finishing prednisone Baclofen did help her she is taking 2 times a day she is requesting if we can increase the dose to 3 times I have sent 30 more tablets she may take it 3 times a day for another couple of weeks Ear was irrigated with good result She is due for physical exam, we will book that in 3 or 4 months Medications: Changed From baclofen 10 mg PO BID 10 days PRN 20 tabs 0RF muscle spasm To baclofen 10 mg PO Q8H PRN 30 tabs 0RF muscle spasm 15 days Coding Level of Care Code Est Pt Level 3 (43617) Diagnoses Strain of lumbar paraspinous muscle, initial encounter S39.012A Encounter type: initial encounter Impacted cerumen, left ear H61.22 CPT Codes Office Procedure - CPT: 68640-Woq Irrigation/Lavage ([id number])
== END 2024-01-13 15:05 | disposition home or self-care (01) ==
PROVIDERS: PCP Internal Medicine; Visit Provider Internal Medicine
DX: S39.012A Strain of muscle, fascia and tendon of lower back, initial encounter (principal); H61.22 Impacted cerumen, left ear
CPT/HCPCS: 69209; 99213

== ENCOUNTER 2024-02-21 14:06 | Outpatient (AMB) | payer OTHER, SELFPAY ==
[2024-02-21 14:07] VITALS: BP 126/82; PULSE 82; O2SAT 97; BMI 26.2
--- NOTE | 2024-02-21 14:07 | MHC.PC.OV ---
Vital Signs 02/21/24 14:07 Height 5 ft 7 in Weight 167 lb 4 oz BMI 26.2 BP 126/82 Blood Pressure Location Rt brachial Position Sitting Pulse 82 Pulse Source Pulse Oximeter Pulse Oximetry (%) 97 Oxygen Delivery Method Room Air Intake Visit Reasons: PE Allergies ibuprofen [IBUPROFEN] Allergy (Unknown, Verified 02/21/24 14:08) HAS ONLY 1 KIDNEY Tobacco use date assessed: 02/21/24 Dental Screening Dental Screen Date: 01/13/24 HPI PE HPI Details Patient is a 48-year-old female came in today to talk about her ears Patient says that she has this problem of itching inside the ear for years She had cerumen impaction left ear that we cleaned last visit But patient continued to the itching On examination her ears are within normal limit I have placed a referral for her to see chemistry research assistant Her back pain is better, now she is taking baclofen only as needed That is the only medication from primary care office PFSH Family History Other Mental health disorder Social History Housing: House Patient Tobacco Use Status: Never used Tobacco e-Cigarette/Vaping Use: Never Used service: No Current occupational status: employed Cognitive needs: No Hearing needs: No Vision needs: Yes Questionnaire PHQ-9 Over the last 2 weeks, how often have you been bothered by any of the following problems? 1. Little interest or pleasure in doing things: not at all 2. Feeling down, depressed, or hopeless: not at all 3. Trouble falling or staying asleep, or sleeping too much: not at all 4. Feeling tired or having little energy: not at all 5. Poor appetite or overeating: not at all 6. Feeling bad about yourself - or that you are a failure or have let yourself or your family down: not at all 7. Trouble concentrating on things, such as reading the newspaper or watching television: not at all 8. Moving or speaking so slowly that other people could have noticed. Or the opposite - being so fidgety or restless that you have been moving around a lot more than usual: not at all 9. Thoughts that you would be better off or of hurting yourself in some way: not at all Total score: 0 Depression Screening Interpretation: Negative Depression Screening Done: Yes 92116 - PHQ-9 Billing: Yes Source: Developed by Drs. Nj Hazel, Yari Patel, Tomasz Lozano and colleagues, with an educational renetta from [employer]. Thrive Questionnaire Date Thrive assessed: 02/21/24 I am a: Patient What is your living situation today?: I have a steady place to live Within the past 12 months, did the food you bought not last and you didn't have the money to get more?: Never true Within the past 12 months, did you worry whether your food would run out before you got money to buy more?: Never true Do you have trouble paying for medicines?: No Do you have trouble getting transportation to medical appointments?: No Do you have trouble paying your heating and electricity bill?: No Do you have trouble taking care of your child, family member or friend?: No Do you have trouble with day-to-day activities such as bathing, preparing meals, shopping, managing finances, etc.?: No Are you currently unemployed and looking for a job?: No Are you interested in more education?: No Please select the resources that you would like help with: None Currently or been in a relationship where the following occur: no concerns reported THRIVE Score: 0 AUDIT C Alcohol Use Questionnaire (AUDIT-C) 1. How often do you have a drink containing alcohol?: Never 3. How often do you have six or more drinks on one occasion?: Never Total Score: 0 Score Reviewed/Action Taken: Yes LISET-7 AMB Questionnaire LISET-7 Date LISET - 7 assessed: 02/21/24 Feeling nervous, anxious, or on edge: 0 = Not at all Not being able to stop or control worryin = Not at all Worrying too much about different things: 0 = Not at all Trouble relaxin = Not at all Being so restless that it is hard to sit still: 0 = Not at all Becoming easily annoyed or irritable: 0 = Not at all Feeling afraid as if something awful might happen: 0 = Not at all Total LISET-7 score (0-4 normal; 5-9 mild; 10-14 moderate; 15-21 severe): 0 Source: Developed by Drs. Nj Hazel, Yari Patel, Tomasz Lozano and colleagues, with an educational renetta from [employer]. LISET-7 Assessment Billing LISET-7 Assessment Tool: LISET-7 Assessment 86527 Review of Systems Const Denies chills and Denies fever(s) ENT Denies epistaxis and Denies nasal discharge Card Denies chest pain Resp Denies chest congestion, Denies cough and Denies hemoptysis GI Denies diarrhea and Denies nausea Skin/Breast Denies rash Neuro Reports no additional complaints Psych Reports no additional complaints Endo Reports no additional complaints Physical exam (Primary Care) Vital Signs: Last Vital Signs Pulse 82 02/21/24 14:07 BP 126/82 02/21/24 14:07 Pulse Ox 97 02/21/24 14:07 Oxygen Delivery Method Room Air 02/21/24 14:07 BMI result Body Mass Index 26.2 Tobacco/Smoking Status: Tobacco use Status Tobacco use date assessed 02/21/24 02/21/24 14:14 Patient Tobacco Use Status Never used Tobacco 02/21/24 14:14 e-Cigarette/Vaping Use Never Used 02/21/24 14:14 PHQ-9: PHQ-9 Score PHQ-9: Total score 0 02/21/24 14:23 Depression Screening Interpretation: Negative Thrive Assessment: Date of Thrive Assessment Date Thrive assessed 02/21/24 02/21/24 14:23 Currently or been in a relationship where the following occur: no concerns reported Const General: cooperative, comfortable and no acute distress Orientation/consciousness: patient oriented x3 HENMT Other: Both ears within normal limit Head: Yes normocephalic Eyes General: appearance normal, both eyes and all related structures Neck Neck: Yes supple Resp Effort & Inspection: normal respiratory effort, no cough and no stridor Skin General skin exam: turgor normal Neuro General: patient oriented x3, tone normal and moves all extremities Extrem Right lower extremity: no edema Left lower extremity: no edema Assessment and Plan Assessment & Plan (1) Itching of ear: Code(s): L29.9 - Pruritus, unspecified (2) Back muscle spasm: Code(s): M62.830 - Muscle spasm of back Plan Patient is a 48-year-old female came in today to talk about her ears Patient says that she has this problem of itching inside the ear for years She had cerumen impaction left ear that we cleaned last visit But patient continued to the itching On examination her ears are within normal limit I have placed a referral for her to see chemistry research assistant Her back pain is better, now she is taking baclofen only as needed That is the only medication from primary care office Orders: Referrals Ear/Nose/Throat Referral L29.9 - Pruritus, unspecified Coding Level of Care Code Est Pt Level 3 (58373) Diagnoses Itching of ear L29.9 Back muscle spasm M62.830 Additional Codes LISET-7 Assessment Billing - LISET-7 Assessment Tool: LISET-7 Assessment 32625 ([id number])
== END 2024-02-21 15:06 | disposition home or self-care (01) ==
PROVIDERS: PCP Internal Medicine; Visit Provider Internal Medicine
DX: L29.9 Pruritus, unspecified (principal); M62.830 Muscle spasm of back
CPT/HCPCS: 99213

== ENCOUNTER 2024-03-13 11:31 | Outpatient (AMB) | payer OTHER, SELFPAY ==
[2024-03-13 11:36] VITALS: BP 140/80; PULSE 90; O2SAT 98; BMI 25.7
--- NOTE | 2024-03-13 11:36 | MHC.PC.OV ---
Vital Signs 03/13/24 11:36 Height 5 ft 7 in Weight 164 lb 2 oz BMI 25.7 BP 140/80 H Blood Pressure Location Rt brachial Position Sitting Pulse 90 Pulse Source Pulse Oximeter Pulse Oximetry (%) 98 Oxygen Delivery Method Room Air Intake Visit Reasons: Back pain Allergies ibuprofen [IBUPROFEN] Allergy (Unknown, Verified 03/13/24 11:39) HAS ONLY 1 KIDNEY Medication List - Last Reconciled 03/13/24 by Mary Flores MD baclofen 10 mg PO Q8H PRN 15 days fluoxetine 60 mg PO DAILY lisdexamfetamine (Vyvanse) 60 mg PO DAILY trazodone 200 - 300 mg PO BEDTIME Tobacco use date assessed: 03/13/24 Dental Screening Dental Screen Date: 03/13/24 Did you have a dental visit in the last 12 months?: Yes Did you have a dental problem in the last 6 months where you did not have access to dental care?: No Was dental information given to patient?: Patient has dentist HPI Back pain HPI Details Patient is a 48-year-old female came in today for an acute visit Patient has been having lower back pain but was doing well last visit with the help of muscle relaxer Patient says that she took muscle relaxer yesterday night but this morning she woke up with severe pain She is having burning sensation back of both thighs as well. Pain is located lumbar spine There is no bowel or urine problem Patient is requesting a note from work for today and yesterday I have also ordered physical therapy for the patient Prednisone 20 mg to be taken once a day for 5 days sent Patient can not take NSAIDs as she has solitary kidney. Patient will also be evaluated by painter and body work, referral is in for [facility] [facility] She lives in [place] which is far from [place]. Physical therapy order printed along with demographics and handed to patient [facility] Family History Other Mental health disorder Social History Housing: House Patient Tobacco Use Status: Never used Tobacco e-Cigarette/Vaping Use: Never Used service: No Current occupational status: employed Cognitive needs: No Hearing needs: No Vision needs: Yes Questionnaire Thrive Questionnaire Date Thrive assessed: 02/21/24 AUDIT C Alcohol Use Questionnaire (AUDIT-C) 1. How often do you have a drink containing alcohol?: Never 3. How often do you have six or more drinks on one occasion?: Never Total Score: 0 Score Reviewed/Action Taken: Yes LISET-7 AMB Questionnaire LISET-7 Date LISET - 7 assessed: 02/21/24 Source: Developed by Drs. Nj Hazel, Yari Patel, Tomasz Lozano and colleagues, with an educational renetta from [employer]. Review of Systems Const Denies chills and Denies fever(s) ENT Denies epistaxis and Denies nasal discharge Card Denies chest pain Resp Denies chest congestion, Denies cough and Denies hemoptysis GI Denies diarrhea and Denies nausea Skin/Breast Denies rash Neuro Reports no additional complaints Psych Reports no additional complaints Endo Reports no additional complaints Physical exam (Primary Care) Vital Signs: Last Vital Signs Pulse 90 03/13/24 11:36 BP 140/80 H 03/13/24 11:36 Pulse Ox 98 03/13/24 11:36 Oxygen Delivery Method Room Air 03/13/24 11:36 BMI result Body Mass Index 25.7 Tobacco/Smoking Status: Tobacco use Status Tobacco use date assessed 03/13/24 03/13/24 11:40 Patient Tobacco Use Status Never used Tobacco 03/13/24 11:40 e-Cigarette/Vaping Use Never Used 03/13/24 11:40 Thrive Assessment: Date of Thrive Assessment Date Thrive assessed 02/21/24 03/13/24 11:40 Const General: cooperative, comfortable and no acute distress Orientation/consciousness: patient oriented x3 HENDE Head: Yes normocephalic Eyes General: appearance normal, both eyes and all related structures Neck Neck: Yes supple Resp Effort & Inspection: normal respiratory effort, no cough and no stridor Cardio Rhythm: regular rhythm Heart sounds: S1 normal heart sound present and S2 normal heart sound present Back/Spine/Pelvis Back/spine/pelvis image: 1. Site of pain, no pain with percussion, straight leg negative both sides, range of motion of back is intact. Neuro exam nonfocal Skin General skin exam: turgor normal Neuro General: patient oriented x3, tone normal and moves all extremities Extrem Right lower extremity: no edema Left lower extremity: no edema Assessment and Plan Assessment & Plan (1) Lumbar back pain: Code(s): M54.50 - Low back pain, unspecified (2) Back muscle spasm: Code(s): M62.830 - Muscle spasm of back Plan Patient is a 48-year-old female came in today for an acute visit Patient has been having lower back pain but was doing well last visit with the help of muscle relaxer Patient says that she took muscle relaxer yesterday night but this morning she woke up with severe pain She is having burning sensation back of both thighs as well. Pain is located lumbar spine There is no bowel or urine problem Patient is requesting a note from work for today and yesterday I have also ordered physical therapy for the patient Prednisone 20 mg to be taken once a day for 5 days sent Patient can not take NSAIDs as she has solitary kidney. Patient will also be evaluated by painter and body work, referral is in for [employer] [facility] She lives in [place] which is [place] from [place]. Physical therapy order printed along with demographics and handed to patient Orders: Orders PT Evaluation and Treatment Today M54.50 - Low back pain, unspecified XR lumbar spine 2-3V Today M54.50 - Low back pain, unspecified Referrals Pain Management Referral M54.50 - Low back pain, unspecified Medications: New prednisone 20 mg PO DAILY 5 tabs 0RF 5 days Coding Level of Care Code Est Pt Level 3 (27336) Diagnoses Lumbar back pain M54.50 Back muscle spasm M62.830
== END 2024-03-13 13:29 | disposition home or self-care (01) ==
LOC: HO.HMGC 11:31
PROVIDERS: PCP Internal Medicine; Visit Provider Internal Medicine
DX: M54.50 Low back pain, unspecified (principal); M62.830 Muscle spasm of back
CPT/HCPCS: 99213

== ENCOUNTER 2024-03-13 11:54 | Outpatient (REF) | payer OTHER, SELFPAY ==
--- NOTE | ~2024-03-13 | XR_ITS ---
EXAMINATION: XR LUMBOSACRAL SPINE CLINICAL INFORMATION: Low back pain unspecified. COMPARISON: None available. TECHNIQUE: Three views of the lumbosacral spine. FINDINGS: Asymmetric sclerosis and degenerative changes in the left sacroiliac joint greater than right. Facet arthritis in the lower lumbar spine. Multilevel lumbar spondylosis with moderate loss of disc space height and hypertrophic change at L5-S1. XR/XR lumbar spine 2-3V IMPRESSION: Multilevel lumbar spondylosis most notable at L5-S1.
== END 2024-03-13 11:55 | disposition home or self-care (01) ==
LOC: HO.HMGCX 11:54
PROVIDERS: PCP Internal Medicine; Visit Provider Internal Medicine
DX: M54.50 Low back pain, unspecified (principal)
CPT/HCPCS: 72100

== ENCOUNTER 2025-01-18 15:26 | Outpatient (AMB) | payer OTHER, SELFPAY ==
--- NOTE | 2025-01-18 15:35 | AM.OFFWIN_ITS ---
Intake Vital Signs 01/18/25 15:40 Weight 164 lb BP 122/80 Pulse 80 Pulse Source Pulse Oximeter Temp 98.5 F Temp Source Oral Pulse Oximetry (%) 98 Oxygen Delivery Method Room Air Intake Visit Reasons: EP ?UTI/RT elbow sensation Intake Note: Patient here for frequent urination, burning sensation and cloudy urine which started about 4 days ago. She would also like to have right thumb pain that radiates down to the elbow. Patient Tobacco Use Status: Never used Tobacco Allergies ibuprofen [IBUPROFEN] Allergy (Unknown, Verified 01/18/25 15:37) HAS ONLY 1 KIDNEY Do you need a note to return to daycare/school/sports/work: No HPI HPI Comments History of Present Illness Details 49 year old female c/o 2 issues, possibl e UTI and right thumb pain - 4 days of malodorous, cloudy urine, mi ld burning with urination, - denies blood in urine, low abdominal p ain, or increased frequency - no hx of kidney stones - throbbing right thumb pain radiates to her elbow, with weakness, sharp shooting pain for the last few weeks, getting worse - types all day at work - had carpal tunnel release bilateral 11 years ago - also has medial elbow pain worse with some movements PFSH Family History Other Mental health disorder Social History Housing: House Patient Tobacco Use Status: Never used Tobacco e-Cigarette/Vaping Use: Never Used service: No Current occupational status: employed Cognitive needs: No Hearing needs: No Vision needs: Yes Review of Systems Const All systems reviewed & are unremarkable except as noted in HPI and below Physical Exam Vital Signs: Last Vital Signs Temp 98.5 F 01/18/25 15:40 Pulse 80 01/18/25 15:40 BP 122/80 01/18/25 15:40 Pulse Ox 98 01/18/25 15:40 Oxygen Delivery Method Room Air 01/18/25 15:40 Const General: cooperative, healthy appearing, comfortable and no acute distress Orientation/consciousness: patient oriented x3 Limitations: no limitations HEENT Head: Yes normal to inspection Resp Effort & Inspection: normal respiratory effort and able to speak in complete sentences Neuro General: patient oriented x3 Extrem Right upper extremity: normal to inspection, full ROM, elbow/forearm Details: normal to inspection, tenderness Location: of the medial epicondyle (ttp) and normal ROM; no swelling, no unusual warmth, no abrasions, no lacerations, no ecchymosis and no deformity and wrist Details: normal to inspection, normal ROM, normal vascular exam and Tinel's negative; no tenderness, no swelling, no unusual warmth, no abrasions, no lacerations, no ecchymosis and Phalen's positive Results AMB Urinalysis, Automated UA Leukoctes 0 Gomez/uL Last Edit by Josesito Gill [facility] on 01/18/25 15:55 UA Nitrite Negative Last Edit by Josesito Gill [facility] on 01/18/25 15:55 UA Urobilinogen 0.2 mg/dL Last Edit by MirandaAlbania Gill [facility] on 01/18/25 15:55 UA Protein 0 mg/dL Last Edit by Josesito Gill [facility] on 01/18/25 15:55 UA pH 6.0 Last Edit by MirandaAlbania Gill [facility] on 01/18/25 15:55 UA Blood 10 Jag/uL Last Edit by MirandaAlbania Gill [facility] on 01/18/25 15:55 UA Specific Condon 1.025 Last Edit by Josesito Gill [facility] on 01/18/25 15:55 UA Ketone Negative Last Edit by Josesito Gill [facility] on 01/18/25 15:55 UA Bilirubin 0 mg/dL Last Edit by MirandaAlbania Gill [facility] on 01/18/25 15:55 UA Glucose 0 mg/dL Last Edit by MirandaAlbania Gill [facility] on 01/18/25 15:55 Assessment & Plan Assessment & Plan (1) UTI (urinary tract infection): Code(s): N39.0 - Urinary tract infection, site not specified Qualifiers: Hematuria presence: with hematuria Urinary tract infection type: site unspecified Qualified Code(s): N39.0 - Urinary tract infection, site not speci fied; R31.9 - Hematuria, unspecified Plan: Urinalysis is negative for infection but positive for blood. Sent cefuroxime, as I am treating based on her symptoms and I will send the culture. Gave patient signs and symptoms of a kidney stone and when to go to the emergency department however no concern for a kidney stone today. (2) Medial epicondylitis of right elbow: Code(s): M77.01 - Medial epicondylitis, right elbow Plan: Sent diclofenac to patient's pharmacy, advised she use it sparingly as she only has 1 kidney. Recommended no concurrent NSAID use. Rest and ice. If no improvement in her symptoms, she should follow up with her PCP. (3) Wrist pain, right: Code(s): M25.531 - Pain in right wrist Plan: Gave patient a thumb spica style wrist brace, she did have a carpal tunnel release 11 years ago and she does type all day long, hoping to rest the wrist will improve her pain as well as the diclofenac should give her some benefit. If no improvement in her symptoms over the next couple of weeks, she should follow up with her PCP Orders: Orders Urine Culture Today N39.0 - Urinary tract infection, site not specified AMB Urinalysis Automated Today Z13.9 - Encounter for screening, unspecified Medications: New cefuroxime axetil 500 mg PO Q12H 10 tabs 0RF diclofenac sodium 50 mg PO Q12H PRN 10 tabs 0RF pain Coding Level of Care Code Est Pt Level 4 (32730) Diagnoses Urinary tract infection with hematuria, site unspecified N39.0; R31.9 Hematuria presence: with hematuria Urinary tract infection type: site unspecified Medial epicondylitis of right elbow M77.01 Wrist pain, right M25.531
[2025-01-18 15:40] VITALS: BP 122/80; PULSE 80; TEMP 36.9; O2SAT 98
== END 2025-01-18 16:23 | disposition home or self-care (01) ==
PROVIDERS: PCP Internal Medicine; Visit Provider Physician Assistant
DX: N39.0 Urinary tract infection, site not specified (principal); R31.9 Hematuria, unspecified; M77.01 Medial epicondylitis, right elbow; M25.531 Pain in right wrist; Z13.9 Encounter for screening, unspecified

== ENCOUNTER 2025-01-18 15:26 | Outpatient (REF) | payer OTHER, SELFPAY | END 2025-01-18 15:27 | disposition home or self-care (01) | LOC: HO.LAB 15:26 | PROVIDERS: PCP Internal Medicine; Visit Provider Physician Assistant | DX: S63.501A Unspecified sprain of right wrist, initial encounter (principal) | CPT/HCPCS: 81003 ==

== ENCOUNTER 2025-01-29 16:18 | Outpatient (REF) | payer OTHER, SELFPAY ==
[2025-01-29 17:23] LABS: Appearance Urine Cloudy; Color Urine Yellow; Glucose Urine UA Negative (Negative); Leukocyte Esterase Urine Negative (Negative); Nitrite Urine Negative (Negative); Specific Gravity - Urine 1.025 (1.005-1.025); UMIC TRIGGER UACC YES; Urine Blood Trace (Negative); Urine Ketones Trace mg/dL (Negative); Urine Protein Negative (Neg-Trace)
[2025-01-29 17:53] LABS: Bacteria Urine 1+ (None Seen); Hyaline Casts Urine 0-2 /LPF (0-2); RBC Urine 0-2 /HPF (0-2); Squamous Epithelial Cell Urine >20 /HPF (0-2); UACC Culture Trigger YES
== END 2025-01-29 16:19 | disposition home or self-care (01) ==
LOC: HO.LAB 16:18
PROVIDERS: Absent Provider Physician Assistant; PCP Internal Medicine; Visit Provider Internal Medicine
DX: N39.0 Urinary tract infection, site not specified (principal); R31.9 Hematuria, unspecified
CPT/HCPCS: 81001; 87086